=== PATIENT | male | born 1985 | race Caucasian/White ===

== ENCOUNTER 2018-06-01 09:49 | Emergency (ER) | payer BC, OTHER ==
--- NOTE | 2018-06-01 10:28 | EDPHY ---
H & P Stated Complaint: head to head collision playing soccer/? loc increasing coy r eye visual issu Time Seen by Provider: 06/01/18 10:03 HPI/ROS: CHIEF COMPLAINT: Head injury, visual loss HISTORY OF PRESENT ILLNESS: 33-year-old male presents with head injury and visual loss. He was playing soccer just prior to arrival and collided with another player. Headache was initially mild and located over the right side of forehead. Gradually increasing pain since the injury, now moderate. Now associated with decreased vision in the right eye. No neck pain or other injuries. REVIEW OF SYSTEMS: complete 10 point ROS reviewed and is negative except for the noted elements in the HPI - Personal History Current Tetanus Diphtheria and Acellular Pertussis (TDAP): Unsure - Medical/Surgical History Hx Asthma: No Hx Chronic Respiratory Disease: No Hx Diabetes: No Hx Cardiac Disease: No Hx Renal Disease: No Hx Cirrhosis: No Hx Alcoholism: No Hx HIV/AIDS: No Hx Splenectomy or Spleen Trauma: No Other PMH: l knee inj - Social History Smoking Status: Current some day smoker Alcohol Use: Sober Drug Use: None - Physical Exam Exam: General Appearance: Alert, pleasant Head: Right frontal abrasion and swelling, tenderness over the medial aspect of the eyebrow area Eyes: Supraorbital swelling, right eyelid droop, LOTUS, no conjunctival pallor or injection, EOMI, mild diplopia with upward gaze (dysconjugate gaze not detectible on my exam), no hyphema ENT, Mouth: No other facial bony tenderness, Mucous membranes moist, no dental injury Neck: Normal inspection, nontender, range of motion without pain Respiratory: Lungs are clear to auscultation Cardiovascular: Regular rate and rhythm Gastrointestinal: Abdomen is soft and nontender Neurological: A&O, CN II, IV-XII intact, motor/sensory intact, normal gait Skin: Warm and dry Extremities: Normal inspection Psychiatric: Mood and affect normal Constitutional: Initial Vital Signs Temperature (C) 37.2 C 06/01/18 09:53 Heart Rate 87 06/01/18 09:53 Respiratory Rate 17 06/01/18 09:53 Blood Pressure 138/86 H 06/01/18 09:53 O2 Sat (%) 96 06/01/18 09:53 O2 Delivery Mode Room Air Allergies/Adverse Reactions: Penicillins Allergy (Verified 06/01/18 09:53) Home Medications: Medication Instructions Recorded Sertraline HCl 06/01/18 Medical Decision Making - Diagnostics Imaging Results: Imaging Impressions Head CT 06/01/18 10:25 Impression: Mildly depressed, displaced fracture of the anterior wall of the right frontal sinus and right supraorbital rim, as above. No evidence for acute intracranial abnormality. Results called and discussed with Velia Aguilera MD on June 01, 2018 at 1054 hours. Imaging: Discussed imaging studies w/ scallop cutter Radiologist ED Course/Re-evaluation: This patient presents with facial trauma after a collision. Exam is remarkable for a possible cranial nerve 3 palsy (vs supraorbital swelling) and likely supraorbital fracture. Visual acuity is 20/[address] scan is remarkable only for facial fractures. Results discussed with the patient. Exam is unchanged. Dr. Roldan was consulted and will see the patient in her office tomorrow morning. Differential Diagnosis: Differential diagnosis includes though it is not limited to fracture, intracranial hemorrhage, pneumothorax, hemothorax, intra-abdominal hemorrhage. - Data Points Medications Given: Discontinued Medications Ibuprofen (Motrin) 600 mg PO EDNOW ONE Stop: 06/01/18 11:21 Last Admin: 06/01/18 11:33 Dose: 600 mg Departure - Departure Disposition: Home, Routine, Self-Care Clinical Impression: Fracture, facial bones Qualifiers: Encounter type: initial encounter Facial bone/location: other facial bone Fracture type: closed Laterality: right Qualified Code(s): S02.81XA - Fracture of other specified skull and facial bones, right side, initial encounter for closed fracture Concussion Qualifiers: Encounter type: initial encounter Loss of consciousness presence/duration: without LOC Qualified Code(s): S06.0X0A - Concussion without loss of consciousness, initial encounter Condition: Good Instructions: Facial Fracture (ED), Concussion (ED) Additional Instructions: You have fractures of the supraorbital rim (above the eye) and the frontal sinus. I suspect that you have also injured the nerve that opens the eyelid ( cranial nerve III). You also have a concussion. Concussion instructions: 1. Cognitive rest while symptomatic. Limit screen time (phone, TV, computer) until symptoms resolve. 2. Limit physical activities that could lead to head injury until symptoms have completely resolved. Wear a helmet when skiing and biking. 3. Use Tylenol and ibuprofen as directed on the packaging as needed for pain for the next few days. 4. Follow up with your primary care provider and/or head injury specialist if you have persisting symptoms for more than 10 days. 5. Return to the ED for severe headache, weakness or numbness on one side of your body, or other worsening of condition. Referrals: Linnea Roldan MD [Medical Doctor] - As per Instructions (Dr. Roldan will see you in her office tomorrow at 8am. The office phone number is [phone].)
[2018-06-01] MEDS ORDERED: IBUPROFEN 600 MG TAB PO ONE (11:20)
[2018-06-01 11:39] VITALS: BP 144/82
== END 2018-06-01 11:40 | disposition home or self-care (01) ==
DX: S06.0X0A Concussion without loss of consciousness, initial encounter (principal); S02.81XA Fracture of other specified skull and facial bones, right side, initial encounter for closed fracture; H54.7 Unspecified visual loss; W51.XXXA Accidental striking against or bumped into by another person, initial encounter; Y93.66 Activity, soccer